=== PATIENT | female | born 1960 ===

== ENCOUNTER 2017-11-30 10:11 | Outpatient (CLI) | payer BC | END 2017-11-30 10:12 | disposition home or self-care (01) | LOC: BICMAMMO 10:11 | PROVIDERS: ATTEND Family Medicine | DX: Z12.31 Encounter for screening mammogram for malignant neoplasm of breast (principal); R92.1 Mammographic calcification found on diagnostic imaging of breast | CPT/HCPCS: 77063; 77067 ==

== ENCOUNTER 2018-12-02 09:06 | Outpatient (CLI) | payer BC ==
--- NOTE | 2018-12-02 10:47 | MMO ---
Bilateral MAMMO Bilat Screen [facility]. CLINICAL HISTORY: Patient is 58 years old and is seen for screening. The patient has no family history of breast cancer. The patient has no personal history of cancer. The patient has a history of left Excisional Biopsy in 2009 - benign. VIEWS: The views performed were: bilateral craniocaudal with tomosynthesis and bilateral mediolateral oblique with tomosynthesis. FILMS COMPARED: The present examination has been compared to prior imaging studies performed at on 11/28/2016 and 11/30/2017. This study has been interpreted with the assistance of computer-aided detection. MAMMOGRAM FINDINGS: The breasts are heterogeneously dense, which could obscure a lesion on mammography. There are stable benign appearing calcifications seen in both breasts. There are no suspicious masses, calcifications or areas of architectural distortion. There are no suspicious masses, suspicious calcifications, or new areas of architectural distortion. IMPRESSION: THERE IS NO MAMMOGRAPHIC EVIDENCE OF MALIGNANCY. A ROUTINE FOLLOW-UP MAMMOGRAM IN 1 YEAR IS RECOMMENDED. THE RESULTS OF THIS EXAM WERE SENT TO THE PATIENT. ACR BI-RADS Category 2 - Benign finding MAMMOGRAPHY NOTE: 1. A negative mammogram report should not delay a biopsy if a dominant of clinically suspicious mass is present. 2. Approximately 10% to 15% of breast cancers are not detected by mammography. 3. Adenosis and dense breasts may obscure an underlying neoplasm. Reported by: IRVING CRONIN MD Electonically Signed: [id number]
== END 2018-12-02 09:07 | disposition home or self-care (01) ==
LOC: BICMAMMO 09:06
PROVIDERS: ATTEND Family Medicine
DX: Z12.31 Encounter for screening mammogram for malignant neoplasm of breast (principal); Z91.89 Other specified personal risk factors, not elsewhere classified
CPT/HCPCS: 77063; 77067

== ENCOUNTER 2019-03-30 10:35 | Outpatient (CLI) | payer BC ==
--- NOTE | 2019-03-30 12:40 | RAD ---
PA AND LATERAL CHEST: Date: HISTORY: Nonproductive cough. FINDINGS: Heart size within normal limits. There are atherosclerotic changes of the aorta. Lungs are clear of a ny infiltrates. Bones appear demineralized. There are arthritic changes of the spine. IMPRESSION: No active intrathoracic disease. POS: [facility]
== END 2019-03-30 10:36 | disposition home or self-care (01) ==
LOC: TBSIIMAG 10:35
PROVIDERS: ATTEND Family Medicine
DX: R05 Cough (principal)
CPT/HCPCS: 71046

== ENCOUNTER 2019-12-05 08:52 | Outpatient (CLI) | payer BC ==
--- NOTE | 2019-12-05 09:24 | BD ---
EXAM: DEXA bone density examination HISTORY: 59-year-old postmenopausal female for screening COMPARISON: None FINDINGS: L1--bone mineral density 0.787 g/sq cm; T score -1.8 L2--bone mineral density 0.904 g/sq cm; T score -1.1 L3--bone mineral density 0.912 g/sq cm; T score -1.6 L4--bone mineral density 0.894 g/sq cm; T score -1.5 Total L1-L4--bone mineral density 0.878 g/sq cm; T score -1.5 Left femoral neck--bone mineral density0.698; T score -1.4 Total proximal left femur--bone mineral density 0.791; T score -1.2 IMPRESSION: Osteopenia. This patient has a 10 year WHO fracture risk of a major osteoporotic fracture of 6.5% and of a hip fracture of 0.9%.
--- NOTE | 2019-12-05 10:55 | MMO ---
Bilateral MAMMO Bilat Screen [facility]. CLINICAL HISTORY: Patient is 59 years old and is seen for screening. The patient has no family history of breast cancer. The patient has no personal history of cancer. The patient has a history of left Excisional Biopsy in 2009 - benign. VIEWS: The views performed were: bilateral craniocaudal with tomosynthesis and bilateral mediolateral oblique with tomosynthesis. FILMS COMPARED: The present examination has been compared to prior imaging studies performed at 11/28/2016, 11/30/2017 and 12/02/2018. This study has been interpreted with the assistance of computer-aided detection. MAMMOGRAM FINDINGS: The breasts are heterogeneously dense, which could obscure a lesion on mammography. Benign calcifications are noted bilaterally. There are no suspicious masses, suspicious calcifications, or new areas of architectural distortion. IMPRESSION: THERE IS NO MAMMOGRAPHIC EVIDENCE OF MALIGNANCY. A ROUTINE FOLLOW-UP MAMMOGRAM IN 1 YEAR IS RECOMMENDED. THE RESULTS OF THIS EXAM WERE SENT TO THE PATIENT. ACR BI-RADS Category 2 - Benign finding MAMMOGRAPHY NOTE: 1. A negative mammogram report should not delay a biopsy if a dominant of clinically suspicious mass is present. 2. Approximately 10% to 15% of breast cancers are not detected by mammography. 3. Adenosis and dense breasts may obscure an underlying neoplasm. Reported by: EVER CASTELLANOS MD Electonically Signed: [id number]
== END 2019-12-05 08:53 | disposition home or self-care (01) ==
LOC: BICMAMMO 08:52
PROVIDERS: ATTEND Family Medicine
DX: Z12.31 Encounter for screening mammogram for malignant neoplasm of breast (principal); M85.89 Other specified disorders of bone density and structure, multiple sites; Z91.89 Other specified personal risk factors, not elsewhere classified
CPT/HCPCS: 77063; 77067; 77080

== ENCOUNTER 2019-12-05 09:24 | Outpatient (CLI) | payer BC ==
--- NOTE | 2019-12-05 11:16 | CT ---
LOW DOSE CT SCAN OF THE CHEST WITHOUT IV CONTRAST FOR LUNG CANCER SCREENING: Date: 12/05/2019 HISTORY: Current smoker for over 30 years, one pack/day. No symptoms or complaints. COMPARISON: None. FINDINGS: There is biapical scarring. Mild scarring is also seen in the lung bases. Emphysematous changes are p resent. There are calcified pleural plaques in the apices. No nodules measuring 3.0 mm or greater are seen. No pleural or pericardial effusions are identified. There are vascular calcifications without evidenc e of aneurysmal dilatation of the thoracic aorta. There are degenerative changes in the spine. IMPRESSION: Lung-RADS 1 - Negative. RECOMMENDATION: Follow-up LDCT of the chest is recommended in 12 months. POS: OFF
== END 2019-12-05 09:25 | disposition home or self-care (01) ==
LOC: BICCT 09:24
PROVIDERS: ATTEND Family Medicine
DX: Z12.2 Encounter for screening for malignant neoplasm of respiratory organs (principal); F17.210 Nicotine dependence, cigarettes, uncomplicated
CPT/HCPCS: G0297

== ENCOUNTER 2020-12-07 08:20 | Outpatient (CLI) | payer BC | END 2020-12-07 08:21 | disposition home or self-care (01) | LOC: BICCT 08:20 | PROVIDERS: ATTEND Family Medicine | DX: Z12.31 Encounter for screening mammogram for malignant neoplasm of breast (principal); Z13.6 Encounter for screening for cardiovascular disorders; F17.210 Nicotine dependence, cigarettes, uncomplicated; Z12.2 Encounter for screening for malignant neoplasm of respiratory organs; I70.90 Unspecified atherosclerosis | CPT/HCPCS: 71271; 76775; 77063; 77067 ==